=== PATIENT | male | born 1995 | race Caucasian/White ===

== ENCOUNTER 2019-01-26 12:01 | Emergency (ER) | payer OTHER, SELFPAY ==
[2019-01-26 12:02] VITALS: BP 114/78; PULSE 85; RESP 17; TEMP 36.8; O2SAT 98; BMI 25.5
--- NOTE | 2019-01-26 12:33 | ED.VISSUMM ---
- ER Visit Summary Date of Service: 01/26/19 Chief Complaint: Back pain History of Present Illness: The patient is a 23 M presenting with back pain. Patient states he lifted a 60 pound battery out of a car yesterday while at work. He has had pain in his low back since. He denies bowel or bladder incontinence. Denies numbness or weakness. He is able to ambulate. He has tried Aleve. Denies other complaints. Physical Examination: Vitals are stable. Patient is afebrile. Alert no acute distress. HEENT exam is unremarkable. Neck is supple. Lungs are clear and equal bilaterally. Heart is regular rate and rhythm. Abdomen is soft nontender nondistended. Back: Bilateral paraspinal lumbar muscle tenderness, no midline tenderness. Straight leg raise negative bilaterally Extremities are unremarkable. Skin is warm and dry. No focal neurologic deficit. Normal strength and sensation Remainder of exam is unremarkable. Emergency Department Course and Treatment: Patient given morphine, Zofran IM. He is given a prescription for Flexeril and advised to continue NSAIDs. Advised to follow-up with [facility] care. Advised return to ED if worsening complaints. Disposition: Discharge home Impression: Lumbar strain This note was generated with [employer] dictation software. It may contain incorrect words, spelling, and punctuation that were not noted in review of the chart prior to signing ED Disposition - Plan for ED Patient: Instructions: ED Sprain Strain Lumbar Prescriptions: Cyclobenzaprine [Flexeril] 10 mg PO TID PRN #20 tablet PRN Reason: Muscle Spasm [place]: [facility] [place] [GROUP OF PHYSICIANS] -
--- NOTE | 2019-01-26 12:37 | ED.DCSUM_ITS ---
- ER Visit Summary Date of Service: 01/26/19 Chief Complaint: Back pain History of Present Illness: The patient is a 23 M presenting with back pain. Patient states he lifted a 60 pound battery out of a car yesterday while at work. He has had pain in his low back since. He denies bowel or bladder incontinence. Denies numbness or weakness. He is able to ambulate. He has tried Aleve. Denies other complaints. Physical Examination: Vitals are stable. Patient is afebrile. Alert no acute distress. HEENT exam is unremarkable. Neck is supple. Lungs are clear and equal bilaterally. Heart is regular rate and rhythm. Abdomen is soft nontender nondistended. Back: Bilateral paraspinal lumbar muscle tenderness, no midline tenderness. Straight leg raise negative bilaterally Extremities are unremarkable. Skin is warm and dry. No focal neurologic deficit. Normal strength and sensation Remainder of exam is unremarkable. Emergency Department Course and Treatment: Patient given morphine, Zofran IM. He is given a prescription for Flexeril and advised to continue NSAIDs. Advised to follow-up with [facility] care. Advised return to ED if worsening complaints. Disposition: Discharge home Impression: Lumbar strain This note was generated with [employer] dictation software. It may contain incorrect words, spelling, and punctuation that were not noted in review of the chart prior to signing ED Disposition - Plan for ED Patient: Instructions: ED Sprain Strain Lumbar Prescriptions: Cyclobenzaprine [Flexeril] 10 mg PO TID PRN #20 tablet PRN Reason: Muscle Spasm Referrals: [facility] [GROUP OF PHYSICIANS] -
[2019-01-26] MEDS: Morphine 4 MG/ML Syringe 8 MG IM (13:22)
[2019-01-26] MEDS: Ondansetron 4 MG/2 ML Vial IM (13:23)
[2019-01-26 13:39] VITALS: PULSE 88; RESP 14
== END 2019-01-26 13:40 | disposition home or self-care (01) ==
LOC: ED 12:39
PROVIDERS: Emergency Provider Emergency Medicine
DX: S39.012A Strain of muscle, fascia and tendon of lower back, initial encounter (principal); X50.0XXA Overexertion from strenuous movement or load, initial encounter; Y93.89 Activity, other specified; Y92.9 Unspecified place or not applicable; Y99.0 Civilian activity done for income or pay; Z72.0 Tobacco use
CPT/HCPCS: 96372; 99282; A4216; J2405

== ENCOUNTER 2019-10-31 01:03 | Emergency (ER) | payer SELFPAY ==
[2019-02-10 09:12] VITALS: BMI 24.9
[2019-10-31 01:06] VITALS: BP 117/73; PULSE 114; RESP 20; TEMP 39; O2SAT 93; BMI 28.8
[2019-10-31 01:10] VITALS: BP 117/73; PULSE 114; RESP 20; TEMP 39; O2SAT 93
--- NOTE | 2019-10-31 01:57 | ED.DCSUM_ITS ---
History of Present Illness Chief Complaint: General Illness Informant: Patient, Family Onset: Days - 1-2 Context: Gradual Onset Timing: Continuous Quality: achy, sore throat, malaise Location: all over Current Severity: Moderate Maximum Severity: Moderate Worsened by: Swallowing Relieved by: - - hasn't tried anything Associated Symptoms: Negative for: Headache, Nausea, Vomiting, Diarrhea, Shortness of Breath, Chest Pain, Nonproductive cough, Hemoptysis, Productive Cou gh Narrative: Exposure to someone with strep recently. No cough or earache. Has a headache and achy all over especially in his low back. Decreased oral intake. Is able t o drink. No GI symptoms or trouble urinating. - Past Medical History (1) Seizure disorder Status: Chronic Past Medical History - Allergies and Home Meds Allergies/Adverse Reactions: Allergies zinc Allergy (Unknown, Verified 02/10/19 09:12) swelling tramadol Adverse Reaction (Verified 10/31/19 01:08) D/T DEPAKOCLAUDIA Primary Care Physician: Care Physician,No Primary [Primary Care Provider] - Lives: With Family Smoking Status: Current every day smoker Review of Systems General: Reports: Chills, Fever, Malaise, Subjective Eyes: Denies: Visual changes - bilaterally, Diplopia ENT: Reports: Sore throat. Denies: Bilateral ear pain, Rhinorrhea Cardiovascular: Denies: Chest pain, Palpitations Respiratory: Denies: Dyspnea, Cough, Dyspnea on exertion Gastrointestinal: Denies: Abdominal pain, Nausea, Vomiting, Diarrhea, Melena, Hematochezia Genitourinary: Denies: Dysuria, Hematuria, Frequency Musculoskeletal: Reports: Myalgias, Back pain. Denies: Swelling, Extremity Pain Skin: Denies: Rash, Wounds Neurological: Denies: Headache, Weakness, Numbness Physical Exam Vital Signs/Narrative: Vital Signs Temp Pulse Resp BP Pulse Ox 10/31/19 01:10 102.2 F H 114 H 20 H 117/73 93 10/31/19 01:06 102.2 F H 114 H 20 H 117/73 93 Inital Vital Signs reviewed: Yes General: Well nourished, Well developed Head: Normocephalic, Atraumatic Eyes: Perrl, EOMI Ears: Normal external canal, TM's clear Nose: Normal Inspection, No Rhinorrhea Mouth/Throat: Normal Inspection, Posterior Oropharyngeal Erythema Tonsils: Right Tonsilar Erythema, Left Tonsilar Erythema, Right Tonsilar Exudates, Left Tonsilar Exudates. Negative for: Right Tonsilar Swelling, Left Tonsilar Swelling Neck: Supple, No Meningismus, Anterior Lymphadenopathy. Negative for: Posterior Lymphadenopathy Cardiovascular: Regular rate, Regular rhythm, No murmurs, Tachycardia Respiratory: No distress, CTA bilaterally, Chest nontender Abdomen: Soft, Nontender, Nondistended, Normal bowel sounds Back: Nontender, Normal Inspection Extremities: Nontender, No edema Skin: Normal color, No rash, No Trauma Neurological: Alert, Oriented x3, Cranial nerves II-XII grossly intact, Normal Strength, Normal Sensation, Normal Gait Psychological: Normal affect, Normal Mood Diagnostic/Tx/Re-eval - Medical Decision Making Patient with all [facility] criteria. Consistent with strep especially with an exposure, I think empiric treatment is indicated and reasonable without testing. Given amoxicillin and Decadron and Toradol here. He appears hydrated. ED Disposition - Plan for ED Patient: Disposition: Home or Assisted Living Diagnosis: Pharyngitis, streptococcal, acute Instructions: Strep Throat Prescriptions: Amoxicillin 875 mg PO BID #20 tab Transmission Status: Pending to [id number] Referrals: Doctor,Your [STAFF PHYSICIAN] - 1 Week if not improving
[2019-10-31] MEDS: AMOXICILLIN 500 MG CAPSULE PO (02:04)
[2019-10-31] MEDS: dexAMETHasone 10 MG/ML Vial PO.IVFORM (02:05)
[2019-10-31] MEDS: Ketorolac 60 MG/2 ML Vial IM (02:08)
[2019-10-31 02:24] VITALS: BP 121/74; PULSE 101; RESP 20; O2SAT 98
--- NOTE | 2019-10-31 02:25 | ED.RN ---
THIS NURSE REVIEWED D/C INSTRUCTIONS WITH PT AND SO. SO VERBALIZED UNDERSTANDING OF INSTRUCTIONS. PT DENIES FURTHER NEEDS OR QUESTIONS AT THIS TIME. PT AMBULATES FROM ROOM ON OWN WITHOUT ASSISTANCE FROM STAFF
== END 2019-10-31 02:26 | disposition home or self-care (01) ==
PROVIDERS: Emergency Provider Emergency Medicine
DX: J02.0 Streptococcal pharyngitis (principal); G40.909 Epilepsy, unspecified, not intractable, without status epilepticus; F17.200 Nicotine dependence, unspecified, uncomplicated
CPT/HCPCS: 96372; 99283